=== PATIENT | male | born 1995 | race Caucasian/White ===

== ENCOUNTER 2020-09-12 16:49 | Outpatient (REF) | payer MEDICAID, SELFPAY ==
[2020-09-12 18:46] LABS: ALT 26 U/L (16-63); AST 26 U/L (15-37); Albumin 4.7 g/dL (3.4-5.0); Alkaline Phosphatase 87 U/L (46-116); Anion Gap 7.7 mmol/L (3-11); BUN 14 mg/dL (7-18); Bilirubin, Total 0.4 mg/dL (0.2-1.0); CO2 29.3 mmol/L (21.0-32.0); CREATININE 1.02 mg/dL (0.70-1.30); Calcium 9.2 mg/dL (8.5-10.1); Chloride 101 mmol/L (98-107); Glucose 72 mg/dL (74-106); Potassium 3.8 mmol/L (3.5-5.1); Sodium 138 mmol/L (136-145)
[2020-09-15 09:52] LABS: HBs Antibody, Quant <3.1 mIU/mL (See Note); Hepatitis B Surface Ab Negative (See Note)
[2020-09-15 10:00] LABS: Hepatitis B Surface Ag Negative (Negative)
[2020-09-15 10:23] LABS: Syphilis Serology (RPR) Negative (Negative)
[2020-09-15 10:35] LABS: Hepatitis C Ab w Rflx HCV PCR Negative (Negative)
[2020-09-15 10:49] LABS: Hep B Core Antibody Negative (Negative)
== END 2020-09-12 17:09 ==
LOC: NCHCN 16:49
PROVIDERS: Visit Provider Family Medicine
DX: R10.32 Left lower quadrant pain (principal); F11.20 Opioid dependence, uncomplicated; Z11.59 Encounter for screening for other viral diseases
CPT/HCPCS: 80053; 86704; 86706; 86803; 87340; 86592

== ENCOUNTER 2020-12-27 19:43 | Emergency (ER) | payer MEDICAID, SELFPAY ==
[2020-12-27 19:46] VITALS: BP 159/86; PULSE 62; RESP 18; TEMP 36.7; O2SAT 99
--- NOTE | 2020-12-27 20:05 | ED.GENADUL_ITS ---
Discharge Plan Disposition Patient Disposition: HOME Condition: Stable Discharge Details Clinical Impression: Pain, dental Primary Care Provider: Unknown,Unknown ED Provider: Cornelius Siddiqi Home Meds and New Rx's Prescriptions: New amoxicillin-pot clavulanate [Augmentin] 875-125 mg tablet 1 tab PO BID Qty: 14 RF: 0 Continued methadone 10 mg Tablet 60 mg PO DAILY RF: 0 Discharge Instructions Instructions: Toothache (ED) Additional Instructions: follow up with a dentist as soon as possible if you have worsening pain, difficulty swallowing or breathing return to the emergency department Medical Decision Making 25 yo male with hx of prior substance abuse now on methadone comes in with complaints of left lower posterior molar pain. Denies fevers, difficulty swallowing, swelling, or difficulty breathing. He states he has had dental infections requiring oral antibiotics in the past and feels similar. Has dental caries on numerous teeth, pain with percussion to posterior left molar and no visible abscess, normal posterior pharynx with midline uvula, no submandibular swelling, no pain over the hyoid or restricted neck movements with no difficulty swallowing on exam and clear speech, no indication of rpa, bellhop captain or epiglotitis on exam or ludwigs. Suspect either caries, impacted wisdom tooth or pulpitis or early abscess, will place on augmentin and he is going to follow up with dentist in [place], return precautions given Differential Diagnosis Differential Diagnosis: impacted wisdom teeth, pulpitis, abscess, caries HPI General Mode of arrival: ambulatory . Date/Time Provider Initiated Documentation: 12/27/20 20:04 . Limitations to Documentation: no limitations . Information obtained by: patient . History of Present Illness 25 year old M presents to the emergency department with the chief complaint of left lower posterior molar pain, described as moderate, and it has been constant. No relieving factors improve symptom(s), No exacerbating factors reported . Patient notes no other symptoms.. Patient did receive the following treatments prior to arrival, NSAID Related Data Home Medications Medication Instructions Recorded Confirmed amoxicillin-pot clavulanate 1 tab PO BID #14 tab 12/27/20 [Augmentin] methadone 60 mg PO DAILY 12/27/20 12/27/20 Previous Rx's Medication Instructions Recorded amoxicillin-pot clavulanate 1 tab PO BID #14 tab 12/27/20 [Augmentin] Allergies Allergy/AdvReac Type Severity Reaction Status Date / Time No Known Allergies Allergy Unverified 12/27/20 19:48 General Stated Complaint: DentalOral MARGOTH: 4 Review of Systems All systems reviewed & are unremarkable except as noted in HPI and below Constitutional Constitutional: Denies chills, Denies fever(s) and Denies weakness Cardiovascular Cardiovascular: Denies chest pain and Denies dyspnea Respiratory Respiratory: Denies cough and Denies dyspnea Gastrointestinal Gastrointestinal: Denies abdominal pain, Denies nausea and Denies vomiting Musculoskeletal Musculoskeletal: Denies joint swelling Neurologic Neurologic: Denies weakness [facility] Social History Smoking/Tobacco Use Status: Never Smoking risk assessment performed?: Yes Alcohol Intake: never Drug use: Current Sobriety Substance use type: former substance user Details: states he used to use heroin Do you feel safe at home: No Do you feel safe in your relationship?: No Exam Const General: no acute distress Orientation: alert HENMT Head: normal to inspection Ears: external ears normal General nose exam: external nose normal Mouth: moist mucous membranes Eyes General: appearance normal, both eyes and all related structures Neck Neck: normal visual inspection Resp Effort & Inspection: normal respiratory effort and able to speak in complete sentences Cardio Rate: regular rate Skin General skin exam: no rashes or lesions noted Neuro General: patient alert and patient oriented x3 Extrem General: normal to inspection Psych Mental Status: mental status grossly normal Course Vital Signs Vital signs: Vital Signs Temperature 36.7 C 12/27/20 19:46 Pulse 62 12/27/20 19:46 Respiratory Rate 18 12/27/20 19:46 Blood Pressure 159/86 H 12/27/20 19:46 Pulse Oximetry 99 12/27/20 19:46 Temperature 36.7 C 12/27/20 19:46 Temperature Source Skin 12/27/20 19:46 Pulse 62 12/27/20 19:46 Respiratory Rate 18 12/27/20 19:46 Blood Pressure 159/86 H 12/27/20 19:46 Pulse Oximetry 99 12/27/20 19:46 Pain Level 7 12/27/20 19:49
[2020-12-27] MEDS: Amoxicillin 875/Clav. 125 TAB PO (20:17)
== END 2020-12-27 20:28 | disposition home or self-care (01) ==
PROVIDERS: Emergency Provider Emergency Medicine
DX: K08.89 Other specified disorders of teeth and supporting structures (principal)
CPT/HCPCS: 99283

== ENCOUNTER 2023-10-22 15:41 | Emergency (ER) | payer MEDICAID, SELFPAY ==
[2023-10-22 15:54] VITALS: BP 130/65; PULSE 67; RESP 12; TEMP 36.7; O2SAT 98
--- NOTE | 2023-10-22 16:06 | W.ED.GENAD ---
HPI General Stated Complaint: DentalOral MARGOTH: 4 Date/Time Provider Initiated Documentation: 10/22/23 16:06. HPI Narrative: 27 year-old male presents to ED today by POV/ambulating with a chief complaint of left lower molar dental pain, mild jaw pain with onset for the past week after a minor dental fracture to left lower molar. Quality described as throbbing, no radiation to fever, facial swelling, trismus, vocal changes, excessive drooling, neck swelling. Severity is described as 4-5/10. Palliating factors include clove oil, APAP/NSAIDs at home. Provoking factors include nothing specific. Patient not anticoagulated. Related Data Home Medications Medication Instructions Recorded Confirmed methadone 10 mg tablet 60 mg PO DAILY 12/27/20 10/22/23 amoxicillin 875 mg-potassium 1 tab PO BID dental infection 14 10/22/23 clavulanate 125 mg tablet days #28 tabs Previous Rx's Medication Instructions Recorded amoxicillin 875 mg-potassium 1 tab PO BID dental infection 14 10/22/23 clavulanate 125 mg tablet days #28 tabs Allergies Allergy/AdvReac Type Severity Reaction Status Date / Time No Known Allergies Allergy Unverified 10/22/23 16:36 Review of Systems All systems reviewed & are unremarkable except as noted in HPI and below PFSH All Active Problems (Updated 10/22/23 @ 16:42 by GHULAM Neal) Dental infection (Acute) Pain, dental (Acute) Social History Smoking/Tobacco Use Status: Current every day Tobacco Type: e-cigarettes Smoking risk assessment performed?: Yes Alcohol Intake: current Alcohol Intake frequency: 0-2 drinks per day Alcohol type: beer Drug use: Current Sobriety Substance use type: former substance user Details: states he used to use heroin Housing: apartment Do you feel safe at home: No Do you feel safe in your relationship?: No Exam Narrative Exam Narrative: GENERAL APPEARANCE: Well-nourished, non-toxic, awake and alert, atraumatic, no acute distress. SKIN: Warm, pink, dry, intact, without rashes/lesions/ulcerations. HEAD: Normocephalic, atraumatic, normal hair distribution for gender/age. EYES: Pupils PERRLA, EOMs intact without nystagmus, normal conjunctiva, no exudates on lids/lashes. ENT: Nares patent, no circumoral cyanosis, no facial swelling, uvula midline, no tonsillar swelling, overall good dentition, no visible dental fracture, dental caries left lower 2nd molar, no gingival swelling/abscess, no trismus, no vocal changes, managing secretions well, no angioedema/submandibular/neck/facial swelling NECK: Supple, trachea midline, painless cervical ROM. LUNGS/CHEST: Non-labored respirations, normal A/P diameter, symmetrical expansion, no chest wall deformity HEART (CV/PV): No peripheral edema, no JVD. ABDOMEN: Soft, non-distended, no guarding. MSK: Normal ROM, no swelling/deformity to bilateral UEs or LEs, moving all extremities without weakness, no cyanosis, spine midline without tenderness, normal curvature. NEURO: Mental Status AAOx4 - alert to person, place, time, events No facial droop, no forehead involvement. Motor: No focal weakness - strength 5/5 in bilateral UEs and LEs, proximal and distal, symmetric. Sensory: sensation intact to light touch globally. Gait normal: patient ambulated without ataxia into ED room. PSYCH: euthymic, cooperative, pleasant, appropriate speech Course Vital Signs Vital signs: Vital Signs Temperature 36.7 C 10/22/23 15:54 Pulse 67 10/22/23 15:54 Respiratory Rate 12 10/22/23 15:54 Blood Pressure 130/65 10/22/23 15:54 Pulse Oximetry 98 10/22/23 15:54 Temperature 36.7 C 10/22/23 15:54 Temperature Source Temporal Artery Scan 10/22/23 15:54 Pulse 67 10/22/23 15:54 Respiratory Rate 12 10/22/23 15:54 Blood Pressure 130/65 10/22/23 15:54 Blood Pressure Position Sitting 10/22/23 15:54 Pulse Oximetry 98 10/22/23 15:54 Oxygen Delivery Method Room Air 10/22/23 15:54 Oxygen Flow Rate 0 10/22/23 15:54 Pain Level 6 10/22/23 15:54 Comment Pt took tylenol 1000mg at 1500 today. 10/22/23 15:54 Medical Decision Making This dictation utilizes [id number] dictation software and may contain unedited grammatical errors. 27 y/o M presents to ED today with a chief complaint of dental pain, possible dental fracture/small chipped tooth, L lower 2nd molar. Patient endorses increasing pain/throbbing, onset one week ago. Patients' medical history: negative, otherwise healthy. Family and social history: noncontributory. Pertinent exam findings / vital signs include ENT: Nares patent, no circumoral cyanosis, no facial swelling, uvula midline, no tonsillar swelling, overall good dentition, no visible dental fracture, dental caries left lower 2nd molar, no gingival swelling/abscess, no trismus, no vocal changes, managing secretions well, no angioedema/submandibular/neck/facial swelling. Differential / pathologies of concern include dental infection, dental caries, gingival abscess. Diagnostic studies of: -none. Interventions of: -Outpatient Rx of Augmentin. ED Course/Assessment/Plan: Patient has simple uncomplicated dental infection, no facial swelling or signs of trismus or developing large abscess, uvula midline, counseled on therapeutic dosing of Tylenol and ibuprofen, homeopathic side clove oil and Anbesol which she is already performing. And sent a prescription for Augmentin to the pharmacy, strict return criteria for any increasing facial swelling, redness, trismus, vocal changes, excessive drooling, neck or submandibular swelling. Findings not consistent with peritonsillar abscess, gingival abscess, trismus. Disposition of dental infection. Patient verbalized understanding of the plan and return to ED criteria and engaged in shared decision making. Medical Records Medical records reviewed: Yes I reviewed the patient's medical records. Quality:[facility] Health Related Social Needs: No Data to Display Discharge Plan Disposition Patient Disposition: Home Condition: Stable Discharge Details Clinical Impression: Dental infection Primary Care Provider: None,None ED Provider: Luis Enrique Branham Home Meds and New Rx's Prescriptions: New amoxicillin-pot clavulanate 875-125 mg tablet 1 tab PO BID 14 Days Qty: 28 0RF No Action methadone 10 mg Tablet 60 mg PO DAILY Discharge Instructions Instructions: Amoxicillin/Clavulanate Potassium (By mouth), Toothache (ED) Additional Instructions: You were seen in the emergency department for your dental infection of your left lower molar, there is no visible gingival abscess, you have full range of motion in the jaw and no facial swelling. Please start the antibiotics I have sent [place] the hill to [facility] in [place], please use therapeutic dosing of Tylenol (acetamenophen) & Advil (ibuprofen) in an alternating fashion as follows: Take 1000mg of Tylenol every 6 hours without missing doses- that is 4 times per day. Long-Term in between the Tylenol dosings, take 400-600mg of Advil also on a 6 hour schedule, that is also 4 times per day. The daily maximum dosing of Tylenol is 4000mg, and the daily maximum dosing of Advil is 2400mg. This is safe to do for weeks. Please note that some common cold medications & prescription pain medications may contain acetamenophen and you need to read OTC drug labels and factor that in to maximum daily dosings. Use topical clove oil and Anbesol as you have been doing. Please return to the ED for inability to open or close her jaw, increasing facial swelling and redness, high fever, severe vocal changes- hoarse voice, and excessive drooling or inability to handle your own secretions. Discharge Data Discharge Date/Time-TO BE ENTERED AT DEPARTURE: 10/22/23 16:52
[2023-10-22 16:37] VITALS: BP 130/65; PULSE 67; RESP 12; TEMP 36.7; O2SAT 98
== END 2023-10-22 16:52 | disposition home or self-care (01) ==
PROVIDERS: Emergency Provider Physician Assistant
DX: R68.84 Jaw pain (principal); K04.7 Periapical abscess without sinus
CPT/HCPCS: 99283

== ENCOUNTER 2023-12-06 17:05 | Emergency (ER) | payer MEDICAID, SELFPAY ==
[2023-12-06 17:27] VITALS: BP 183/98; PULSE 79; RESP 16; TEMP 36.4; O2SAT 97
--- NOTE | 2023-12-06 18:50 | ED.GENADUL_ITS ---
HPI General Mode of arrival: ambulatory . Date/Time Provider Initiated Documentation: 12/06/23 17:28 . Limitations to Documentation: no limitations . Information obtained by: patient, RN notes reviewed and old records reviewed . HPI Narrative: 27 year old male presents with left shoulder pain which seems to be improved. Requesting work note to go back to work tomorrow. Related Data Home Medications Medication Instructions Recorded Confirmed methadone 10 mg tablet 60 mg PO DAILY 12/27/20 12/06/23 Allergies Allergy/AdvReac Type Severity Reaction Status Date / Time No Known Allergies Allergy Unverified 12/06/23 17:26 General Stated Complaint: Orthopedic MARGOTH: 5 Review of Systems Musculoskeletal Musculoskeletal: Reports arthralgias Exam Narrative Exam Narrative: Constitutional: Alert and oriented x3. Appears stated age. Normal body habitus. Head: Normocephalic, no trauma. Eyes: Pupils PERRL, Red reflex noted, EOM's intact. Eyelids symmetrical without lesions, discharge, or swelling. ENT: Bilateral TM's WNL, External ear normal to inspection, no mastoid TTP, swelling, or erythema, Nasal turbinates WNL, no nasal discharge. Normal dentition, Posterior pharynx WNL, no exudate. Chest: RRR, Normal S1, S2, distal pulses intact. Resp: Lungs clear to auscultation bilaterally, no wheezes, rales, or rhonchi. Abdomen: Soft, non-distended, Normoactive bowel sounds all 4 quads. Musculoskeletal: Normal gait, 5/5 strength to all four extremities. Skin: No suspicious rashes or lesions. Capillary refill less than 2 sec. Neurologic: Cranial nerves II-XII intact. Alert and oriented x 3. Motor: No deficits noted. Sensory: Intact bilaterally all 4 extremities. Reflexes: DTR's intact bilaterally.. Hematologic/Lymphatic: No ecchymosis, no lymphadenopathy. Course Vital Signs Vital signs: Vital Signs Temperature 36.4 C L 12/06/23 17:27 Pulse 79 12/06/23 17:27 Respiratory Rate 16 12/06/23 17:27 Blood Pressure 183/98 H 12/06/23 17:27 Pulse Oximetry 97 12/06/23 17:27 Temperature 36.4 C L 12/06/23 17:27 Temperature Source Temporal Artery Scan 12/06/23 17:27 Pulse 79 12/06/23 17:27 Respiratory Rate 16 12/06/23 17:27 Blood Pressure 183/98 H 12/06/23 17:27 Blood Pressure Position Sitting 12/06/23 17:27 Pulse Oximetry 97 12/06/23 17:27 Oxygen Delivery Method Room Air 12/06/23 17:27 Oxygen Flow Rate 0 12/06/23 17:27 Pain Level 0 12/06/23 17:27 Medical Decision Making 27 year old male presents with a request for a work note to go back to work. Moving all 4 extremities without difficulty. This text was generated using [employer] system, please disregard any oddities of phrase or misspellings. Quality:[facility] Health Related Social Needs: No Data to Display PFSH All Active Problems (Updated 12/06/23 @ 18:51 by Jasmin Mane NP) Arm pain (Acute) Pain, dental (Acute) Social History Smoking/Tobacco Use Status: Current every day Tobacco Type: e-cigarettes Smoking risk assessment performed?: Yes Alcohol Intake: current Alcohol Intake frequency: 0-2 drinks per day Alcohol type: beer Drug use: Current Sobriety Substance use type: former substance user Details: states he used to use heroin Housing: apartment Do you feel safe at home: No Do you feel safe in your relationship?: No Discharge Plan Disposition Patient Disposition: Home Condition: Stable Discharge Details Clinical Impression: Arm pain Primary Care Provider: None,None ED Provider: Jasmin Mane Home Meds and New Rx's Prescriptions: No Action methadone 10 mg Tablet 60 mg PO DAILY Discharge Instructions Instructions: Arm Pain (ED) Additional Instructions: Follow up with primary care provider in 3-5 days. Return to ED sooner if any worsening or concerns. Increase oral fluids. Stand Alone Forms: Work Release
== END 2023-12-06 19:18 | disposition home or self-care (01) ==
PROVIDERS: Emergency Provider Registered Nurse Emergency
DX: M79.622 Pain in left upper arm (principal)
CPT/HCPCS: 99281; 99282

== ENCOUNTER 2024-01-09 16:33 | Emergency (ER) | payer MEDICAID, SELFPAY ==
[2024-01-09 16:37] VITALS: BP 147/99; PULSE 78; RESP 18; TEMP 36.6; O2SAT 100
--- NOTE | 2024-01-09 16:53 | ED.GENADUL_ITS ---
Discharge Plan Disposition Patient Disposition: Home Condition: Stable Discharge Details Clinical Impression: Dental infection Primary Care Provider: Unknown,Unknown ED Provider: Marielle Moreno Home Meds and New Rx's Prescriptions: New amoxicillin-pot clavulanate 875-125 mg tablet 1 tab PO BID 7 Days Qty: 14 0RF No Action methadone 10 mg Tablet 50 mg PO DAILY Discharge Instructions Instructions: Toothache (ED) Additional Instructions: Please start antibiotics as prescribed. Continue Motrin or Tylenol as needed for pain. Please follow-up with dentist to soon as possible. HPI General Date/Time Provider Initiated Documentation: 01/09/24 16:35 . Limitations to Documentation: no limitations . Information obtained by: patient . HPI Narrative: 28-year-old with past medical history of opiate use disorder on methadone presents for evaluation of dental pain. Patient reports that he has a broken tooth on his lower right molar. Pain has been worsening. He localizes pain to the tooth and jaw area. He reports when he presses on the area he has a foul smell in his nose. No drainage. No facial swelling, no voice change or difficulty swallowing Related Data Home Medications Medication Instructions Recorded Confirmed methadone 10 mg tablet 50 mg PO DAILY 12/27/20 01/09/24 amoxicillin 875 mg-potassium 1 tab PO BID 7 days #14 tabs 01/09/24 clavulanate 125 mg tablet Previous Rx's Medication Instructions Recorded amoxicillin 875 mg-potassium 1 tab PO BID 7 days #14 tabs 01/09/24 clavulanate 125 mg tablet Allergies Allergy/AdvReac Type Severity Reaction Status Date / Time No Known Allergies Allergy Unverified 01/09/24 16:40 General Stated Complaint: DentalOral MARGOTH: 4 Exam Narrative Exam Narrative: Review of Systems: All systems reviewed & are unremarkable except as noted in HPI and below Well-developed, no acute distress NCAT No facial swelling Multiple dental caries Right lower posterior molar with broken tooth noted, tender to palpation of the area, no evidence of abscess, Floor mouth soft PERRL, normal conjunctiva RRR Unlabored respiratory effort Nondistended abdomen Extremities w/o deformity, no cyanosis, no edema No rashes or lesions. no focal neurologic deficits Appropriate mood and affect Course Vital Signs Vital signs: Vital Signs Temperature 36.6 C 01/09/24 16:37 Pulse 78 01/09/24 16:37 Respiratory Rate 18 01/09/24 16:37 Blood Pressure 147/99 H 01/09/24 16:37 Pulse Oximetry 100 01/09/24 16:37 Temperature 36.6 C 01/09/24 16:37 Temperature Source Temporal Artery Scan 01/09/24 16:37 Pulse 78 01/09/24 16:37 Respiratory Rate 18 01/09/24 16:37 Blood Pressure 147/99 H 01/09/24 16:37 Blood Pressure Position Sitting 01/09/24 16:37 Pulse Oximetry 100 01/09/24 16:37 Oxygen Delivery Method Room Air 01/09/24 16:37 Oxygen Flow Rate 0 01/09/24 16:37 Medical Decision Making Evaluation of dental pain. Initial differential includes dental caries, dental abscess, no evidence of Jordyn's angina or other deep space infection. No obvious abscess that is drainable today. Will treat with antibiotics. And have provided a resource sheet with dental clinics. Medical Records Medical records reviewed: Yes I reviewed the patient's medical records. Quality:[facility] Health Related Social Needs: No Data to Display PFSH All Active Problems Dental infection (Acute) Pain, dental (Acute) Social History Smoking/Tobacco Use Status: Current every day Tobacco Type: e-cigarettes Smoking risk assessment performed?: Yes Alcohol Intake: current Alcohol Intake frequency: 0-2 drinks per day Alcohol type: beer Drug use: Current Sobriety Substance use type: former substance user Details: states he used to use heroin Housing: apartment Do you feel safe at home: No Do you feel safe in your relationship?: No
[2024-01-09] MEDS: Acetaminophen 500 MG TAB 1000 MG PO (16:55)
[2024-01-09] MEDS: Amoxicillin 875/Clav. 125 TAB PO (16:55)
== END 2024-01-09 16:57 | disposition home or self-care (01) ==
PROVIDERS: Emergency Provider Emergency Medicine
DX: R68.84 Jaw pain (principal); K04.7 Periapical abscess without sinus
CPT/HCPCS: 99283

== ENCOUNTER 2024-08-10 20:41 | Emergency (ER) | payer MEDICAID, SELFPAY ==
[2024-08-10] VITALS (14 sets, daily range): BP systolic 95–149; BP diastolic 56–77; PULSE 53–160; RESP 19–34; TEMP 36.2–36.8; O2SAT 80–100
--- NOTE | 2024-08-10 20:45 | DI.RAD_ITS ---
Exam(s) XR PORTABLE CHEST AP EXAM: XR PORTABLE CHEST AP CLINICAL HISTORY: Overdose. TECHNIQUE: 2D digital imaging was performed. COMPARISON: No exams were available for comparison FINDINGS: Single AP portable view. Heart size is upper normal. The mediastinum is not widened. Lungs are clear. No infiltrates nor obvious pleural effusions. IMPRESSION: No acute pulmonary findings on this single AP portable view of the chest. DATA REPOSITORY: RADIATION DOSE DELIVERED:
--- NOTE | 2024-08-10 20:45 | RT.EKG_ITS ---
APPROVED REPORT Exam: Resting ECG Reason for Exam: Overdose Patient Location: E HR:84 bpm ECG Measurements Heart Rate 84 AXIS ID 179 P 52 QRSd 92 QRS 83 QT 369 T -8 QTc 436 Conclusion Sinus rhythm...normal P axis, V-rate 60- 99 ST elev, probable normal early repol pattern...ST elevation, age<55
--- NOTE | 2024-08-10 20:50 | ED.GENADUL_ITS ---
Discharge Plan Disposition Patient Disposition: Home Condition: Stable Discharge Details Clinical Impression: Overdose opiate, Substance abuse Primary Care Provider: None,None ED Provider: Jasmin Mane Home Meds and New Rx's Prescriptions: No Action methadone 10 mg Tablet 50 mg PO DAILY Discharge Instructions Instructions: Substance Misuse Treatment, Opioid Overdose ED Referrals: [facility] [Outside] - 1 day (Call if interested in Rehab services) [facility] General Mode of arrival: EMS . Date/Time Provider Initiated Documentation: 08/10/24 20:44 . Information obtained by: patient, EMS, RN notes reviewed and old records re viewed . 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 Presents pale, nauseous and diaphoretic. No other signs of trauma. Related Data Home Medications ?Medication ?Instructions ?Recorded ?Confirmed methadone 10 mg tablet 50 mg PO DAILY 12/27/20 08/10/24 Allergies Allergy/AdvReac Type Severity Reaction Status Date / Time No Known Allergies Allergy Verified 08/10/24 21:01 General Stated Complaint: OD/Poison MARGOTH: 3 Review of Systems Narrative: History largely limited due to altered mental status, history supplied by family and EMS. All systems reviewed & are unremarkable except as noted in HPI and below Constitutional Constitutional: Reports as per HPI Gastrointestinal Gastrointestinal: Reports diarrhea Neurologic Neurologic: Reports abnormal speech Psychiatric Psychiatric: Reports as per HPI Exam Narrative Exam Narrative: General: Arousable to verbal stimuli, vital signs stable, maintaining airway, appears to be under the influence, restless Skin: Warm and Dry HEENT: Head: No palpable deformities, Normocephalic Eyes: Pupils PERRLA, EOM's intact. No periorbital eccymosis or step off Ears: Canal patent. Tympanic membranes are clear . No daley's sign, no hemptympanum. Nose/Face: Atraumatic. Facial bones nontender to palpation and stable with manipulation. Mouth/Throat: No intraoral trauma. Teeth and mandible are intact. Poor dentition. Neck: No midline tenderness, no step off, no deformity to palpation of C-spine. Trachea midline. Chest: No surface trauma. Nontender without crepitus or deformity. Lungs clear to ausculatation bilaterally. Heart: RRR, no rubs, murmurs or gallop. Abdomen: No abrasions, ecchymosis, or surface trauma. Nondistended. Nontender to palpation no guarding, rebound, or rigidity. Pelvis: Nontender to palpation and stable to compression. Femoral pulses strong and equal Extremities: no surface trauma. Sensation intact. Peripheral pulses intact and equal. Neuro: Patient arouses to verbal, slurred speech, appears to be under the influence. Cranial nerves II through XII intact. Motor and sensory exam nonfocal. Reflexes are symmetric. Course Vital Signs Vital signs: Vital Signs Temperature 36.2 C L 08/10/24 20:42 Pulse 78 08/10/24 20:42 Respiratory Rate 33 H 08/10/24 20:42 Blood Pressure 140/68 08/10/24 20:42 Pulse Oximetry 100 08/10/24 20:42 Temperature 36.2 C L 08/10/24 20:42 Temperature Source Temporal Artery Scan 08/10/24 20:42 Pulse 78 08/10/24 20:42 Respiratory Rate 33 H 08/10/24 20:42 Blood Pressure 140/68 08/10/24 20:42 Blood Pressure Position Supine 08/10/24 20:42 Pulse Oximetry 100 08/10/24 20:42 Oxygen Delivery Method Room Air 08/10/24 20:42 Oxygen Flow Rate 0 08/10/24 20:42 Pain Level 0 08/10/24 20:42 Medical Decision Making 28 year old male presents via EMS for apparent Fentanyl overdose [employer]ESS [employer]NAGER, was given 12mg of narcan by family [employer]ESS CONTROL MANAGER. Presents pale, nauseous and diaphoretic. No other signs of trauma. 4 mg Zofran ordered, will continue to observe. Workup ordered CBC CMP chest x- ray troponin, salicylate Tylenol and alcohol level Chest x-ray within normal limits no evidence for aspiration patient did have episode of incontinence of stool upon arrival. Do suspect withdrawal symptoms. Patient continues to have diarrhea. Medications ordered including loperamide, Benadryl, Flexeril. Staff did call patient's mother who was unable to come get him at this time. Will call RCT to try to arrange transport home. Care is to be handed off to oncoming provider Dr. Sharon Abrams for observation pending ride home with our CT around midnight. Discussed patient case and details. Patient at this time is hemodynamically stable O2 sat is 96% on room air. Patient receiving IV fluids. UDS positive for cocaine and benzodiazepine and methadone, alcohol 3.1. Remainder of labs are largely unremarkable below. This text was generated using Neurolinkation system, please disregard any oddities of phrase or misspellings. Lab Data Lab results reviewed: Yes I reviewed the patient's lab results. Labs: Laboratory Tests Range/Units 08/10/24 08/10/24 08/10/24 20:56 21:48 21:50 WBC (4.4-10.8) 10^3/uL 8.32 RBC (4.36-5.78) 10^6/uL 5.38 Hgb (13.5-17.5) g/dL 15.6 Hct (40.0-50.0) % 45.0 MCV (80-95) fL 84 MCH (27.0-33.0) pg 29.0 MCHC (32.0-36.0) % 34.7 RDW (11.8-14.1) % 12.3 Plt Count (130-400) 10^3/uL 280 MPV (8.0-11.0) fL 8.6 Immature Gran % % 0.4 Neutrophils % % 64.3 Lymphocytes % % 26.6 Monocytes % % 6.0 Eosinophils % % 2.2 Basophils % % 0.5 Nucleated RBC % (0.0-0.3) % 0.0 Absolute Neutrophils (1.2-6.7) 10^3/uL 5.36 Absolute Lymphocytes (1.2-3.4) 10^3/uL 2.21 Absolute Monocytes (0.1-0.8) 10^3/uL 0.50 Absolute Eosinophils (0.0-0.7) 10^3/uL 0.18 Absolute Basophils (0.0-0.2) 10^3/uL 0.04 Sodium (136-145) mmol/L 137 Potassium (3.5-5.1) mmol/L 3.8 Chloride (98-107) mmol/L 99 Carbon Dioxide (21.0-32.0) mmol/L 25.5 Anion Gap (3-11) mmol/L 12.5 H BUN (7-18) mg/dL 26 H Creatinine (0.70-1.30) mg/dL 1.0 Est GFR (CKD-EPI 2020) (mL/min/1.73m2) 105.79 Glucose (74-106) mg/dL 103 Calcium (8.5-10.1) mg/dL 10.6 H Magnesium (1.8-2.4) mg/dL 2.4 Total Bilirubin (0.2-1.0) mg/dL 1.13 H AST (15-37) U/L 27 ALT (16-63) U/L 33 Alkaline Phosphatase (46-116) U/L 89 Troponin I (<or=76) ng/L 4 Cancelled Total Protein (6.4-8.2) g/dL 8.5 H Albumin (3.4-5.0) g/dL 4.6 Salicylates (<2.8) mg/dL < 2.8 Urine Opiates Screen (Negative) Negative Urine Methadone Screen (Negative) Positive A Acetaminophen (10-30) ug/mL < 2 Ur Barbiturates Screen (Negative) Negative Ur Tricyclics Screen (Negative) Negative Ur Amphetamines Screen (Negative) Negative U Benzodiazepines Scrn (Negative) Positive A Urine Cocaine Screen (Negative) Positive A Ur THC Screen (Negative) Negative Ethyl Alcohol (<10) mg/dL 3.1 Range/Units 08/10/24 23:48 WBC (4.4-10.8) 10^3/uL RBC (4.36-5.78) 10^6/uL Hgb (13.5-17.5) g/dL Hct (40.0-50.0) % MCV (80-95) fL MCH (27.0-33.0) pg MCHC (32.0-36.0) % RDW (11.8-14.1) % Plt Count (130-400) 10^3/uL MPV (8.0-11.0) fL Immature Gran % % Neutrophils % % Lymphocytes % % Monocytes % % Eosinophils % % Basophils % % Nucleated RBC % (0.0-0.3) % Absolute Neutrophils (1.2-6.7) 10^3/uL Absolute Lymphocytes (1.2-3.4) 10^3/uL Absolute Monocytes (0.1-0.8) 10^3/uL Absolute Eosinophils (0.0-0.7) 10^3/uL Absolute Basophils (0.0-0.2) 10^3/uL Sodium (136-145) mmol/L Potassium (3.5-5.1) mmol/L Chloride (98-107) mmol/L Carbon Dioxide (21.0-32.0) mmol/L Anion Gap (3-11) mmol/L BUN (7-18) mg/dL Creatinine (0.70-1.30) mg/dL Est GFR (CKD-EPI 2020) (mL/min/1.73m2) Glucose (74-106) mg/dL Calcium (8.5-10.1) mg/dL Magnesium (1.8-2.4) mg/dL Total Bilirubin (0.2-1.0) mg/dL AST (15-37) U/L ALT (16-63) U/L Alkaline Phosphatase (46-116) U/L Troponin I (<or=76) ng/L Cancelled Total Protein (6.4-8.2) g/dL Albumin (3.4-5.0) g/dL Salicylates (<2.8) mg/dL Urine Opiates Screen (Negative) Urine Methadone Screen (Negative) Acetaminophen (10-30) ug/mL Ur Barbiturates Screen (Negative) Ur Tricyclics Screen (Negative) Ur Amphetamines Screen (Negative) U Benzodiazepines Scrn (Negative) Urine Cocaine Screen (Negative) Ur THC Screen (Negative) Ethyl Alcohol (<10) mg/dL Quality:SDOH Health Related Social Needs: No Data to Display PFSH All Active Problems (Updated 08/10/24 @ 22:12 by Jasmin Mane NP) Substance abuse (Acute) Overdose opiate (Acute) Pain, dental (Acute) Social History Smoking/Tobacco Use Status: Current every day Tobacco Type: e-cigarettes Smoking risk assessment performed?: Yes Alcohol Intake: current Alcohol Intake frequency: 0-2 drinks per day Alcohol type: beer Drug use: Current Sobriety Substance use type: former substance user Details: states he used to use heroin Housing: apartment Do you feel safe at home: No Do you feel safe in your relationship?: No Sign Out Sign Out Data: Sign Out Comment: Pending RCT at midnight and observation. Overdose of Fentanyl, given 12mg Narcan on scene by bystanders. Here with withdrawal symptoms currently. Last updated by Jasmin Mane NP at 08/10/24 22:39
[2024-08-10 21:00] LABS: Abs Immature Grans 0.03 10^3/uL (0.0-0.06); Absolute Basophil Count 0.04 10^3/uL (0.0-0.2); Absolute Eosinophil Count 0.18 10^3/uL (0.0-0.7); Absolute Lymphocyte Count 2.21 10^3/uL (1.2-3.4); Absolute Neutrophil Count 5.36 10^3/uL (1.2-6.7); Basophils % 0.5 %; Eosinophils % 2.2 %; HGB 15.6 g/dL (13.5-17.5); Immature Grans % 0.4 %; Lymphocytes % 26.6 %; MCHC 34.7 % (32.0-36.0); MCV 84 fL (80-95); MPV 8.6 fL (8.0-11.0); Neutrophils % 64.3 %; Platelet Count 280 10^3/uL (130-400); RBC 5.38 10^6/uL (4.36-5.78); RDW 12.3 % (11.8-14.1); RDW-SD 36.9 fL; WBC 8.32 10^3/uL (4.4-10.8)
[2024-08-10] MEDS: Ondansetron 4 MG/2 ML VIAL IVP (21:11)
[2024-08-10 21:19] LABS: ALT 33 U/L (16-63); AST 27 U/L (15-37); Albumin 4.6 g/dL (3.4-5.0); Alkaline Phosphatase 89 U/L (46-116); Anion Gap 12.5 mmol/L (3-11); BUN 26 mg/dL (7-18); Bilirubin, Total 1.13 mg/dL (0.2-1.0); CO2 25.5 mmol/L (21.0-32.0); Calcium 10.6 mg/dL (8.5-10.1); Chloride 99 mmol/L (98-107); ETHANOL BLOOD 3.1 mg/dL (<10); Estimated GFR 105.79 (mL/min/1.73m2); Glucose 103 mg/dL (74-106); Magnesium 2.4 mg/dL (1.8-2.4); Potassium 3.8 mmol/L (3.5-5.1); Salicylate < 2.8 mg/dL (<2.8); Sodium 137 mmol/L (136-145); Total Protein 8.5 g/dL (6.4-8.2); Troponin I 4 ng/L (<or=76)
[2024-08-10 21:21] LABS: Acetaminophen < 2 ug/mL (10-30)
--- NOTE | 2024-08-10 21:55 | DI.VRAD_ITS ---
PROCEDURE INFORMATION: Exam: XR Chest Exam date and time: 08/10/2024 9:16 PM Age: 28 years old Clinical indication: Other: Overdose TECHNIQUE: Imaging protocol: Radiologic exam of the chest. Views: 1 view. COMPARISON: No relevant prior studies available. FINDINGS: Lungs: Unremarkable. No consolidation. Pleural spaces: Unremarkable. No pleural effusion. No pneumothorax. Heart/Mediastinum: Unremarkable. No cardiomegaly. Bones/joints: Unremarkable. IMPRESSION: No acute findings. Dictated and Authenticated by: Tami Danielle MD. Ordering:LEVI Castellanos MD
[2024-08-10] MEDS: Normal Saline 1,000 ML 1000 ML IV (22:34)
[2024-08-10] MEDS: Cyclobenzaprine 10 MG TAB PO (22:34)
[2024-08-10] MEDS: Loperamide 2 MG CAP 4 MG PO (22:34)
[2024-08-10] MEDS: diphenhydrAMINE 50 MG/ML VIAL 25 MG IVP (22:34)
[2024-08-10 22:36] LABS: *AMPHETAMINES SCREEN URINE Negative (Negative); *BARBITURATES SCREEN URINE Negative (Negative); *BENZODIAZEPINES SCREEN URINE Positive (Negative); Cannabinoids THC Negative (Negative); Cocaine Screen,Urine Positive (Negative); METHADONE URINE SCREEN Positive (Negative); OPIATES URINE SCREEN Negative (Negative); Tricyclic Antidepressants Negative (Negative)
--- NOTE | 2024-08-10 22:39 | ED.PROG_ITS ---
Date of service: 08/10/24 Time of Service: 22:39 Medical Decision Making This patient was signed out to me. Please see previous notes for H&P and initial eval. In brief, 28yo M presenting with polysubstance, inadvertent overdose reportedly on fentanyl which responded to Narcan from family Symptoms of opiod withdrawal on arrival, treated with loperamide, benadyrl, flexeril. Patient is *not* on methadone currently. Plan to observe in the ED for approximately 4 hours from time of Narcan admin, anticipate discharge if no recurrent respiratory depression. Contingent discharge instructions written. On my assessment patient alert, non-toxic appearing, in no distress. Observed in the ED until 0015 with no further respiratory depression or indication of opiod toxicity. Reassuring vital signs prior to discharge. I am concerned that he will continue to use, particularly if his withdrawal symptoms worsen, and so the importance of refraining from opiod use was stressed and patient was offered substance abuse resources. He expressed understanding. Discharged home; discharge instructions and return precautions were reviewed with patient who verbalized understanding. All questions were answered and he is in full agreement with the plan. Quality:[facility] Health Related Social Needs: No Data to Display Sign Out Sign Out Data: Sign Out Comment: Pending RCT at midnight and observation. Overdose of Fentanyl, given 12mg Narcan on scene by bystanders. Here with withdrawal symptoms currently. Last updated by Jasmin Mane NP at 08/10/24 22:39 Discharge Plan Disposition Patient Disposition: Home Condition: Stable Discharge Details Clinical Impression: Overdose opiate, Substance abuse Primary Care Provider: None,None ED Provider: Elvi Whitley Home Meds and New Rx's Prescriptions: Discontinued methadone 10 mg Tablet 50 mg PO DAILY Discharge Instructions Instructions: Substance Misuse Treatment, Opioid Overdose ED Additional Instructions: Do not use illicit drugs- they can kill you. Make sure the people around you have Narcan; you will not be able to give it to yourself when you need it. Please followup with [facility] if you would like treatment for substance use disorder. Referrals: [facility] [Outside] - 1 day (Call if interested in Rehab services)
== END 2024-08-10 23:57 | disposition home or self-care (01) ==
PROVIDERS: Registered Nurse Emergency; Emergency Provider Student in an Organized Health Care Education/Training Program
DX: T40.411A Poisoning by fentanyl or fentanyl analogs, accidental (unintentional), initial encounter (principal); F11.10 Opioid abuse, uncomplicated; Y92.89 Other specified places as the place of occurrence of the external cause
CPT/HCPCS: 00123; 36415; 80053; 80307; 93005; 96361; 96374; 96375; 99285; 71045; 80320; 80329; 83735; 84484; 85025; 93010; 99284; J1200; J2405